=== PATIENT | male | born 1985 | race American Indian/Alaskan Native ===

== ENCOUNTER 2020-02-25 05:49 | Emergency (ER) | payer OTHER ==
[2020-02-25] MEDS ORDERED: ONDANSETRON 4 MG/2 ML INJ ONE (06:03)
[2020-02-25] MEDS ORDERED: SODIUM CHLORIDE 0.9% 1000 ML 1,000 ML ONE (06:04)
[2020-02-25] MEDS ORDERED: MORPHINE 4 MG/1 ML INJ IV ONE (06:17)
[2020-02-25] MEDS ORDERED: ONDANSETRON 4 MG/2 ML INJ IV ONE (06:17)
[2020-02-25] MEDS ORDERED: SODIUM CHLORIDE 0.9% 1000 ML 1,000 ML IV ONE (06:17)
--- NOTE | 2020-02-25 06:18 | Emergency Department Report ---
ED General Adult HPI - General Chief complaint: Multiple Trauma Stated complaint: TRAUMA TO TESTICLES PUI?: No Time Seen by Provider: 02/25/20 06:08 Source: patient, police, EMS ( EMS documentation not available at time of chart dictation ), RN notes reviewed Limitations: Physical Limitation - History of Present Illness Initial comments: The patient was evaluated in the emergency department for symptoms described in the history of present illness. He/she was evaluated in the context of the global COVID-19 pandemic, which necessitated consideration that the patient might be at risk for infection with the virus that causes COVID-19. Institutional protocols and algorithms that pertain to the evaluation of patients at risk for COVID-19 are in a state of rapid change based on information released by regulatory bodies including the CDC and federal and state organizations. These policies and algorithms were followed during the patient's care in the emergency department. Please note that these policies, procedures and recommendations changed on a rapid basis. Patient is a 35-year-old gentleman who is not known to myself previously. He is brought to the hospital by emergency medical services in police custody. As per report from nursing staff, who received report from the group home, patient reportedly jumped 16 feet and landed on his pelvis. Reportedly, this injury was sustained yesterday, February 24, 2020, at/around 6:00 PM. It is not known what initial medical attention, if any, the patient received. Apparently, he had a Hayden catheter placed while in the group home, for unclear reasons, and as per collateral information/verbal report from nursing team, to full Hayden catheter bags were filled with gross blood. The patient was thus sent to this emergency room, this morning, for medical evaluation. EMS verbally indicated to myself and staff that they received directive from the group home to transport the patient here, rather than to a dedicated trauma facility. The patient himself denies headache, neck pain, chest pain, upper abdominal pain, shortness of breath. He is mildly nauseous. He has perennial pain. He is testicular pain. He denies focal extremity weakness/numbness. Airway: Patent and intact Breath sounds: Clear to auscultation bilaterally Circulation: 2+ pulses noted in the upper and lower extremities. Blood pressure 108/74. Disability: GCS 15. Patient is clinically sober at this time. The cervical spine is cleared through nexus and stateless c spine rule Exposure: No obvious blunt or penetrating injuries. Hayden catheter in the phallus, draining gross bloody urine. Secondary survey: Unremarkable, x-ray of the pelvis negative for acute findings. Patient has blunt traumatic injury to the perineum, with gross hematuria. We do not have trauma surgery capability, nor do we have urology available for consultation. This patient has an emergent traumatic condition which cannot be definitively managed at this hospital secondary to the lack of aforementioned services. He requires transfer for higher level of care. Patient gave verbal consent for transfer to a trauma center. Dr. Gilliam, trauma surgeon at [facility], has accepted the patient as a trauma transfer. She advises that patient is a level 3. EMS is requested, lights and sirens. Patient will be given fluids, morphine and Zofran. He will remain nothing by mouth -: Sudden, hour(s) Location: pelvis Consistency: constant Improves with: rest Worsens with: movement - Related Data Allergies Allergy/AdvReac Type Severity Reaction Status Date / Time No Known Allergies Allergy Unverified 02/25/20 06:10 ED Review of Systems ROS: Stated complaint: TRAUMA TO TESTICLES Other details as noted in HPI Constitutional: denies: fever ENT: denies: epistaxis Respiratory: denies: cough Cardiovascular: denies: syncope Gastrointestinal: nausea, vomiting. denies: abdominal pain Genitourinary: hematuria, testicular pain Musculoskeletal: denies: back pain Neurological: denies: weakness ED Physical Exam - General Limitations: Physical Limitation General appearance: alert, anxious, in distress - Head Head exam: Present: atraumatic, normocephalic - Eye Eye exam: Present: normal appearance, EOMI. Absent: nystagmus - ENT ENT exam: Present: normal exam, normal orophraynx, mucous membranes moist, normal external ear exam - Neck Neck exam: Present: normal inspection, full ROM. Absent: tenderness, meningismus - Respiratory Respiratory exam: Present: normal lung sounds bilaterally. Absent: respiratory distress, chest wall tenderness - Cardiovascular Cardiovascular Exam: Present: regular rate, normal rhythm, normal heart sounds. Absent: bradycardia, tachycardia, irregular rhythm, systolic murmur, diastolic murmur, rubs, gallop - GI/Abdominal GI/Abdominal exam: Present: soft. Absent: distended, tenderness, guarding, rebound, rigid, pulsatile mass - Rectal Rectal exam: Present: deferred - exam: Present: normal inspection (Only catheter in place draining grossly bloody urine) External exam: Present: normal external exam (Chaperoned by commercial baker helper Madeline bass), other (There is normal testicular lie. There is normal cremasteric reflex. There is no testicular tenderness. There is no testicular swelling) - Extremities Exam Extremities exam: Present: normal inspection, full ROM, other (2+ pulses noted in the bilateral upper and lower extremities. There is no palpable cord. negative Homans sign. Muscular compartments are soft. The pelvis is stable.). Absent: tenderness, pedal edema, joint swelling, calf tenderness - Back Exam Back exam: Present: normal inspection, full ROM. Absent: tenderness, CVA tenderness (R), CVA tenderness (L), paraspinal tenderness, vertebral tenderness - Neurological Exam Neurological exam: Present: alert, other (No facial droop. Tongue midline. Extraocular movements intact bilaterally. Facial sensation intact to light touch in V1, V2, V3 distribution bilaterally. 5 and a 5 strength in 4 extremities. Sensation intact to light touch in 4 extremities.). Absent: motor sensory deficit - Psychiatric Psychiatric exam: Present: anxious - Skin Skin exam: Present: warm, dry, intact, normal color. Absent: rash ED Course Vital Signs 02/25/20 02/25/20 02/25/20 06:07 06:10 06:15 Temperature 97.7 F Pulse Rate 74 88 Respiratory 18 13 Rate Blood Pressure 108/63 113/68 Blood Pressure [Left] O2 Sat by Pulse 93 94 98 Oximetry 02/25/20 02/25/20 02/25/20 06:45 07:00 07:31 Temperature Pulse Rate 84 95 H 76 Respiratory 12 13 12 Rate Blood Pressure 87/49 110/62 Blood Pressure 116/55 [Left] O2 Sat by Pulse 100 100 100 Oximetry ED Medical Decision Making - Lab Data Result diagrams: 02/25/20 07:08 02/25/20 07:06 Vital Signs 02/25/20 06:10 Temperature 97.7 F Pulse Rate 74 Respiratory 18 Rate Blood Pressure 108/63 O2 Sat by Pulse 94 Oximetry Lab Results 02/25/20 02/25/20 Range/Units 07:06 07:08 WBC 15.9 H (4.5-11.0) K/mm3 RBC 4.02 (3.65-5.03) M/mm3 Hgb 10.8 L (11.8-15.2) gm/dl Hct 33.9 L (35.5-45.6) % MCV 84 (84-94) fl MCH 27 L (28-32) pg MCHC 32 (32-34) % RDW 14.8 (13.2-15.2) % Plt Count 244 (140-440) K/mm3 Sodium 141 (137-145) mmol/L Potassium 3.7 (3.6-5.0) mmol/L Chloride 103.7 (98-107) mmol/L Carbon Dioxide 20 L (22-30) mmol/L Anion Gap 21 mmol/L BUN 13 (9-20) mg/dL Creatinine 1.3 (0.8-1.3) mg/dL Estimated GFR > 60 ml/min BUN/Creatinine Ratio 10 % Glucose 174 H (75-100) mg/dL Calcium 8.4 (8.4-10.2) mg/dL Magnesium 2.40 H (1.7-2.3) mg/dL Total Creatine Kinase 1565 H (55-170) units/L Troponin T < 0.010 (0.00-0.029) ng/mL Vital Signs 02/25/20 02/25/20 02/25/20 06:07 06:10 06:15 Temperature 97.7 F Pulse Rate 74 88 Respiratory 18 13 Rate Blood Pressure 108/63 113/68 Blood Pressure [Left] O2 Sat by Pulse 93 94 98 Oximetry 02/25/20 02/25/20 02/25/20 06:45 07:00 07:31 Temperature Pulse Rate 84 95 H 76 Respiratory 12 13 12 Rate Blood Pressure 87/49 110/62 Blood Pressure 116/55 [Left] O2 Sat by Pulse 100 100 100 Oximetry - Radiology Data Radiology results: report reviewed, image reviewed X-ray of the pelvis is negative for acute disease - Medical Decision Making Differential diagnosis, including but not limited to: Bladder injury, prostatic injury, pelvic injury, assessment and plan: 35-year-old gentleman with straddle injury to the perineum with gross hematuria. Hemodynamically stable at this time. Has been accepted to a trauma center for definitive management. At this point time, patient hemodynamically stable, comfortable, with no obvious other injuries, protecting his airway, suitable for emergency medical transportation for services not available at this facility. Critical care attestation.: If time is entered above; I have spent that time in minutes in the direct care of this critically ill patient, excluding procedure time. ED Disposition Clinical Impression: Gross hematuria, Elevated CK Pelvic straddle injury Qualifiers: Encounter type: initial encounter Qualified Code(s): S39.83XA - Other specified injuries of pelvis, initial encounter Disposition: DC/TX-02 SHRT-TRM GEN HOSP IP Is pt being admited?: No Does the pt Need Aspirin: No Condition: Good Referrals: PRIMARY CARE, [Primary Care Provider] - 3-5 Days
--- NOTE | 2020-02-25 06:51 | XRay Report ---
PELVIS ONE VIEW INDICATION / CLINICAL INFORMATION: blnt pelvic trauma COMPARISON: None available. FINDINGS: BONES / JOINT(S): No acute fracture or subluxation. No significant arthritis. SOFT TISSUES: No significant abnormality. ADDITIONAL FINDINGS: None. Signer Name: Chang Raphael MD Signed: 02/25/2020 6:47 AM Workstation Name: [id number]
[2020-02-25 07:32] VITALS: BP 116/55
[2020-02-25 07:45] LABS: Hematocrit 33.9 % (35.5-45.6); Hemoglobin 10.8 gm/dl (11.8-15.2); Mean Corpuscular HGB Conc 32 % (32-34); Mean Corpuscular Volume 84 fl (84-94); Platelet Count 244 K/mm3 (140-440); Red Blood Count 4.02 M/mm3 (3.65-5.03); Red Cell Distribution Width 14.8 % (13.2-15.2)
[2020-02-25 08:12] LABS: BUN/Creatinine Ratio 10; Blood Urea Nitrogen 13 mg/dL (9-20); Calcium 8.4 mg/dL (8.4-10.2); Hemolysis Index 11
== END 2020-02-25 08:27 | disposition short-term general hospital (02) ==
LOC: ED 05:49
DX: S39.83XA Other specified injuries of pelvis, initial encounter (principal); R31.0 Gross hematuria; R74.8 Abnormal levels of other serum enzymes; X58.XXXA Exposure to other specified factors, initial encounter; Y93.89 Activity, other specified; Y92.89 Other specified places as the place of occurrence of the external cause; Y99.8 Other external cause status
CPT/HCPCS: 36415; 72170; 80048; 82550; 83735; 84484; 85027; 96361; 96374; 96375; 99285; J2270; J2405; J7030

== ENCOUNTER 2020-08-29 00:56 | Emergency (ER) | payer OTHER ==
--- NOTE | 2020-08-29 01:13 | Emergency Department Report ---
ED General Adult HPI - General Chief complaint: Extremity Problem,Nontraumatic Stated complaint: POSSIBLE DVT PUI?: No Time Seen by Provider: 08/29/20 01:12 Source: patient, EMS ( EMS documentation not available at time of chart dictation ), RN notes reviewed, old records reviewed Mode of arrival: Stretcher Limitations: No Limitations - History of Present Illness Initial comments: The patient was evaluated in the emergency department for symptoms described in the history of present illness. He/she was evaluated in the context of the global COVID-19 pandemic, which necessitated consideration that the patient might be at risk for infection with the virus that causes COVID-19. Institutional protocols and algorithms that pertain to the evaluation of patients at risk for COVID-19 are in a state of rapid change based on i nformation released by regulatory bodies including the CDC and federal and state organizations. These policies and algorithms were followed during the patient's care in the emergency department. Please note that these policies, procedures and recommendations changed on a rapid basis. The patient is a 35-year-old gentleman. I evaluated this patient last year, and transferred him to a trauma center for presumed blunts genitourinary injury. Please see my previous chart for details . Patient was transferred to [facility], had a suprapubic Hayden catheter placed, and last month, Febr uary, patient reports "some sort of surgery on my urethra", at [facility], and placement of a urethral Hayden catheter. However, he is not quite sure what specific surgery he had, as "I was asleep for the whole thing." The patient is currently incarcerated, and he presents to the ER with police custody/escort, with a complaint of nontraumatic left posterior calf pain and subjective swelling. This has been present for a few days. The patient denies headache, neck pain, chest pain, abdominal pain, shortness of breath, hematemesis, bright red blood per rectum, loss of taste and smell. No other injuries, no other complaints. Patient believes that he is currently taking "2 antibiotics", although he does not know what they are, as well as "Tylenol, and a muscle relaxer." -: Gradual, days(s) Location: left, lower extremity Quality: aching Consistency: intermittent Improves with: none Worsens with: none Associated Symptoms: denies other symptoms - Related Data Home Medications Medication Instructions Recorded Confirmed Last Taken DOXYCYCLINE Hyclate [Vibramycin] 100 mg PO Q12HR 08/29/20 08/29/20 Unknown Docusate Sodium [Colace] 100 mg PO BID PRN 08/29/20 08/29/20 Unknown Phenazopyridine [Pyridium] 200 mg PO TID 08/29/20 08/29/20 Unknown Sulfamethoxazole/Trimethoprim 1 each PO QDAY 08/29/20 08/29/20 Unknown [Sulfamethoxazole-Tmp Ds Tablet] Tamsulosin [Flomax] 0.4 mg PO QDAY 08/29/20 08/29/20 Unknown Allergies Allergy/AdvReac Type Severity Reaction Status Date / Time No Known Allergies Allergy Unverified 02/25/20 06:10 ED Review of Systems ROS: Stated complaint: POSSIBLE DVT Other details as noted in HPI Comment: All other systems reviewed and negative Musculoskeletal: arthralgia, myalgia ED Past Medical Hx - Past Medical History Previous Medical History?: No - Surgical History Past Surgical History?: Yes Additional Surgical History: ureter reconstruction - Social History Smoking Status: Former Smoker Substance Use Type: None - Medications Home Medications: Home Medications Medication Instructions Recorded Confirmed Last Taken Type DOXYCYCLINE Hyclate [Vibramycin] 100 mg PO Q12HR 08/29/20 08/29/20 Unknown History Docusate Sodium [Colace] 100 mg PO BID PRN 08/29/20 08/29/20 Unknown History Phenazopyridine [Pyridium] 200 mg PO TID 08/29/20 08/29/20 Unknown History Sulfamethoxazole/Trimethoprim 1 each PO QDAY 08/29/20 08/29/20 Unknown History [Sulfamethoxazole-Tmp Ds Tablet] Tamsulosin [Flomax] 0.4 mg PO QDAY 08/29/20 08/29/20 Unknown History ED Physical Exam - General Limitations: No Limitations General appearance: alert, in no apparent distress - Head Head exam: Present: atraumatic, normocephalic - Eye Eye exam: Present: normal appearance, EOMI. Absent: nystagmus - ENT ENT exam: Present: normal exam, normal orophraynx, mucous membranes moist, normal external ear exam - Neck Neck exam: Present: normal inspection, full ROM. Absent: tenderness, meningismus - Respiratory Respiratory exam: Present: normal lung sounds bilaterally. Absent: respiratory distress, wheezes, rales, rhonchi, stridor, decreased breath sounds - Cardiovascular Cardiovascular Exam: Present: regular rate, normal rhythm, normal heart sounds. Absent: bradycardia, tachycardia, irregular rhythm, systolic murmur, diastolic murmur, rubs, gallop - GI/Abdominal GI/Abdominal exam: Present: soft, other (Suprapubic Hayden catheter in place, without redness, pus or streaking, draining clear yellow urine). Absent: distended, tenderness, guarding, rebound, rigid, pulsatile mass - Rectal Rectal exam: Present: deferred - exam: Present: normal inspection External exam: Present: normal external exam, other (Hayden catheter in place. No obvious redness, pus or streaking. Chaperoned by nurse Sandra Aviles) - Extremities Exam Extremities exam: Present: normal inspection, full ROM, other (2+ pulses noted in the bilateral upper and lower extremities. There is no palpable cord. negative Homans sign. Muscular compartments are soft. The pelvis is stable.). Absent: pedal edema, calf tenderness - Back Exam Back exam: Present: normal inspection, full ROM. Absent: tenderness, CVA tenderness (R), CVA tenderness (L), paraspinal tenderness, vertebral tenderness - Neurological Exam Neurological exam: Present: alert, other (No facial droop. Tongue midline. Extraocular movements intact bilaterally. Facial sensation intact to light touch in V1, V2, V3 distribution bilaterally. 5 and a 5 strength in 4 extremities. Sensation intact to light touch in 4 extremities.). Absent: motor sensory deficit - Psychiatric Psychiatric exam: Present: normal affect, normal mood - Skin Skin exam: Present: warm, dry, intact, normal color. Absent: rash ED Course Vital Signs 08/29/20 08/29/20 08/29/20 01:10 01:16 01:29 Temperature 97.9 F Pulse Rate 66 Respiratory 18 18 Rate Blood Pressure 107/66 [Right] O2 Sat by Pulse 100 100 Oximetry - Reevaluation(s) Reevaluation #1: 08/29/20 01:30 Differential diagnosis, including but not limited to: DVT, Shipman's cyst, general medical evaluation Assessment and plan: 35-year-old gentleman, status post urologic surgery about a month ago, now presenting with left posterior mid calf subjective pain and swelling. He is not currently tachycardic, tachypneic or hypoxic. He denies chest pain, shortness of breath, cough, hematemesis. His lower extremity examination is unremarkable on my direct inspection and palpation. However, given that the patient is incarcerated, his ability to closely follow- up for definitive testing is likely limited. Therefore, check appropriate laboratory studies including D-dimer, CBC, comprehensive metabolic panel, and left lower extremity DVT study. Reassess after initial data points. No acute complaints regarding urologic surgery. 08/29/20 02:20 DVT study negative for acute findings. Laboratory studies unremarkable, and appear to be at baseline. CK improved when compared to prior. Patient resting comfortably at this time, and in no acute distress. Patient updated on findings. No emergent condition present at this time. Patient may follow-up with his outpatient neurologist within the next week as scheduled ED Medical Decision Making - Lab Data Result diagrams: 08/29/20 01:21 08/29/20 01:21 Vital Signs 08/29/20 08/29/20 08/29/20 01:10 01:16 01:29 Temperature 97.9 F Pulse Rate 66 Respiratory 18 18 Rate Blood Pressure 107/66 [Right] O2 Sat by Pulse 100 100 Oximetry Lab Results 08/29/20 08/29/20 08/29/20 Range/Units 01:21 01:21 01:21 WBC 4.6 (4.5-11.0) K/mm3 RBC 5.01 (3.65-5.03) M/mm3 Hgb 10.3 L (11.8-15.2) gm/dl Hct 33.7 L (35.5-45.6) % MCV 67 L (84-94) fl MCH 21 L (28-32) pg MCHC 31 L (32-34) % RDW 24.2 H (13.2-15.2) % Plt Count 252 (140-440) K/mm3 Sodium 135 L (137-145) mmol/L Potassium 4.5 (3.6-5.0) mmol/L Chloride 99.5 (98-107) mmol/L Carbon Dioxide 29 (22-30) mmol/L Anion Gap 11 mmol/L BUN 9 (9-20) mg/dL Creatinine 1.2 (0.8-1.3) mg/dL Estimated GFR > 60 ml/min BUN/Creatinine Ratio 8 % Glucose 82 (75-100) mg/dL Calcium 9.6 (8.4-10.2) mg/dL Magnesium 2.00 (1.7-2.3) mg/dL Total Bilirubin 0.20 (0.1-1.2) mg/dL AST 28 (5-40) units/L ALT 35 (7-56) units/L Alkaline Phosphatase 104 (35-129) units/L Total Creatine Kinase 365 H (55-170) units/L Total Protein 7.5 (6.3-8.2) g/dL Albumin 4.1 (3.9-5) g/dL Albumin/Globulin Ratio 1.2 % Acetaminophen 5.0 L (10.0-30.0) ug/mL - Radiology Data Radiology results: pending, report reviewed, image reviewed DUPLEX DOPPLER LOWER EXTREMITY VEINS, LEFT INDICATION: lle pain swelling. TECHNIQUE: Duplex doppler imaging was performed through the veins of the left lower extremity using venous compression and other maneuvers. COMPARISON: None available. FINDINGS: Common femoral vein: Negative. Superficial femoral vein: Negative. Popliteal vein: Negative. Calf veins: Negative. Additional findings: None. IMPRESSION: Negative for DVT. Signer Name: Chang Raphael MD Signed: 08/29/2020 1:13 AM Workstation Name: [id number] Critical care attestation.: If time is entered above; I have spent that time in minutes in the direct care of this critically ill patient, excluding procedure time. ED Disposition Clinical Impression: Left leg pain, Medical clearance for incarceration Disposition: DC/TX-65 PSY HOSP/PSY UNIT Is pt being admited?: No Does the pt Need Aspirin: No Condition: Good Additional Instructions: Please continue current outpatient medications. Please follow-up with your outpatient urologist within the next week as scheduled. Please follow-up with your outpatient primary care doctor within the next month as scheduled. Patient had a left lower extremity DVT study performed, which was negative for DVT. Laboratory studies were unremarkable and essentially unchanged from baseline. Patient may apply rest, ice, compression, elevation therapy to the left leg pain, and he may take [id number] ibuprofen and/or acetaminophen as needed for pain. Please return to the emergency room right away with new pain, worsened pain, migration of pain, projectile vomiting, change in mental status, confusion, inability to tolerate liquid feeds, new, worsened or different symptoms not pre sent on the initial emergency room evaluation.
[2020-08-29 01:37] LABS: Hematocrit 33.7 % (35.5-45.6); Hemoglobin 10.3 gm/dl (11.8-15.2); Mean Corpuscular HGB Conc 31 % (32-34); Platelet Count 252 K/mm3 (140-440); Red Blood Count 5.01 M/mm3 (3.65-5.03)
[2020-08-29 01:55] LABS: Alanine Aminotransferase 35 units/L (7-56); Albumin 4.1 g/dL (3.9-5); BUN/Creatinine Ratio 8; Blood Urea Nitrogen 9 mg/dL (9-20); Calcium 9.6 mg/dL (8.4-10.2); Hemolysis Index 6
[2020-08-29 02:04] LABS: Mean Corpuscular Volume 67 fl (84-94); Red Cell Distribution Width 24.2 % (13.2-15.2)
--- NOTE | 2020-08-29 02:18 | Vascular Lab Report ---
DUPLEX DOPPLER LOWER EXTREMITY VEINS, LEFT INDICATION: lle pain swelling. TECHNIQUE: Duplex doppler imaging was performed through the veins of the left lower extremity using venous compr ession and other maneuvers. COMPARISON: None available. FINDINGS: Common femoral vein: Negative. Superficial femoral vein: Negative. Popliteal vein: Negative. Calf veins: Negative. Additional findings: None. IMPRESSION: Negative for DVT. Signer Name: Chang Raphael MD Signed: 08/29/2020 2:13 AM Workstation Name: [id number]
[2020-08-29 02:23] LABS: INR 0.97 (0.87-1.13)
[2020-08-29 02:24] LABS: Partial Thromboplastin Time 36.5 Sec. (24.2-36.6)
[2020-08-29 02:26] VITALS: BP 131/74
== END 2020-08-29 02:53 ==
LOC: ED 00:56 → EEVIPCON 00:56 → ED 02:53
DX: M79.605 Pain in left leg (principal); Z00.8 Encounter for other general examination; Z87.891 Personal history of nicotine dependence; Z79.899 Other long term (current) drug therapy; Z98.890 Other specified postprocedural states
CPT/HCPCS: 36415; 80053; 80320; 82550; 83735; 85027; 85379; 85610; 85730; G0480